=== PATIENT | female | born 1960 | race Caucasian/White ===

== ENCOUNTER 2025-06-07 06:38 | Day surgery (SDC) | payer MEDICARE, OTHER ==
[2025-06-07] MEDS ORDERED: Midazolam 1 MG/ML 2 ML SDV ONE (07:24)
[2025-06-07] MEDS ORDERED: Propofol 200 MG/20 ML SDV ONE ×2 (07:24→08:46)
[2025-06-07] MEDS: Lactated Ringers 1,000 ML IV SCH (07:36)
== END 2025-06-07 10:05 | disposition home or self-care (01) ==
LOC: JP.SDS 06:38
PROVIDERS: ATTEND Surgery
DX: T18.198A Other foreign object in esophagus causing other injury, initial encounter (principal); I11.0 Hypertensive heart disease with heart failure; I50.9 Heart failure, unspecified; E66.9 Obesity, unspecified; Z98.0 Intestinal bypass and anastomosis status
CPT/HCPCS: 43247; J2250; J2704; J7120; 00731-QZ